=== PATIENT | female | born 1995 | race American Indian/Alaskan Native ===

== ENCOUNTER 2016-12-02 07:10 | Emergency (ER) | payer OTHER ==
[2016-12-02 07:27] VITALS: BP 129/80; PULSE 75; RESP 18; TEMP 99.6; O2SAT 99; BMI 20.3
--- NOTE | 2016-12-02 18:13 | ED PDOC ---
Arrival/HPI - General Chief Complaint: Upper Extremity Problem/Injury Time Seen by Provider: 12/02/16 07:51 - History of Present Illness Narrative History of Present Illness (Text): 21yo female in the ER with an anxiety attack. pt states she has a hx of anxiety and this felt similar to her previous anxiety episodes. Pt denies any suicidal or homicidal ideations. Pt states that her episode has simultaneously resolved and she now feels well. No complaints at this time. Past Medical History - Provider Review Nursing Documentation Reviewed: Yes - Past History Past History: No Previous - Tetanus Immunization Tetanus Immunization: Unknown - Psychiatric Hx Anxiety: Yes Hx Depression: Yes Hx Substance Use: No - Past Surgical History Past Surgical History: No Previous - Suicidal Assessment Feels Threatened In Home Enviroment: No Family/Social History Family/Social History: Unknown Family HX Smoking Status: Never Smoked Hx Alcohol Use: No Hx Substance Use: No Hx Substance Use Treatment: No Allergies/Home Meds Allergies/Adverse Reactions: Allergies No Known Allergies Allergy (Verified 12/02/16 07:27) Home Medications: Home Meds Medication Instructions Recorded Confirmed Ciprofloxacin [Cipro] 500 mg PO Q12 12/02/16 12/02/16 Escitalopram [Lexapro] 20 mg PO DAILY 12/02/16 12/02/16 Physical Exam - Physical Exam Narrative Physical Exam (Text): - Review of Systems Constitutional: Normal. absent: Fatigue, Weight Change, Fevers Eyes: Normal ENT: denies sore throat, denies tristhmus Respiratory: Normal. absent: SOB, Cough, Sputum Cardiovascular: absent: Chest Pain, Palpitations, Syncope Gastrointestinal: Normal. absent: Abdominal Pain, Diarrhea, Nausea, Vomiting Genitourinary: Normal. absent: Dysuria, Frequency, Hematuria, vaginal bleeding Musculoskeletal: Normal. absent: Arthralgias, Back Pain, Neck Pain Skin: no rashes, no erythema Neurological: absent: Focal Weakness Endocrine: Normal Hemo/Lymphatic: Normal Psychiatric: No suicidal or homicidal ideations. Anxiety resolved Physical exam Patient appears age appropriate in no distress, speaking full sentences without difficulty - Systems Exam Head: Present: Atraumatic, Normocephalic Pupils: Present: PERRL Extroacular Muscles: Present: EOMI Conjunctiva: Present: Normal Mouth: Present: Moist Mucous Membranes Neck: Present: Normal Range of Motion. No: MIDLINE TENDERNESS, Paraspinal Tenderness Respiratory/Chest: Present: Clear to Auscultation, Good Air Exchange. No: Respiratory Distress, Accessory Muscle Use, Tachypneic Cardiovascular: Present: Regular Rate and Rhythm, Normal S1, S2, Peripheal Pulses Present. No: Murmurs Abdomen: Present: Normal Bowel Sounds. No: Tenderness, Distention, Peritoneal Signs, Rebound, Guarding Back: Present: Normal Inspection. No: Midline Tenderness, Paraspinal Tenderness Upper Extremity: Present: Normal Inspection. No: Cyanosis, Edema Lower Extremity: Present: Normal Inspection. No: Edema Neurological: Present: GCS=15, Speech Normal, cranial nerves II through XII fully intact with no cerebellar abnormality, neurosensory fully intact. No focal neurological deficits. Skin: Present: Warm, Dry, Normal Color. No: Rashes Lymphatic: Present: OX3, NI, NC Psychiatric: Present: Alert, Oriented x 3, Normal Insight, Normal Concentration Vital Signs Reviewed: Yes Vital Signs Temp Pulse Resp BP Pulse Ox 12/02/16 07:23 99.6 F 75 18 129/80 99 Temperature: Afebrile Blood Pressure: Normal Pulse: Regular Respiratory Rate: Normal Appearance: Positive for: Well-Appearing Pain Distress: None Mental Status: Positive for: Alert and Oriented X 3 Medical Decision Making ED Course and Treatment: pt with anxiety episode which has spontaneously resolved currently in no distress and denies complaints states she feels comfortable being dc'd home with outpatient f/u Pt states she understands to return to the ER right away for new or worsening symptoms or for inability to f/u with PMD or specialist as instructed. Patient states that she fully agrees with and understands discharge instructions. States that she agrees with the plan and disposition. Verbalized and repeated discharge instructions and plan. I have given the patient opportunity to ask any additional questions. Disposition/Present on Arrival - Present on Arrival Any Indicators Present on Arrival: No History of DVT/PE: No History of Uncontrolled Diabetes: No Urinary Catheter: No History of Decub. Ulcer: No History Surgical Site Infection Following: None - Disposition Have Diagnosis and Disposition been Completed?: Yes Diagnosis: Anxiety Disposition: HOME/ ROUTINE Disposition Time: 08:30 Patient Plan: Discharge Condition: GOOD Discharge Instructions (ExitCare): Anxiety (ED) Additional Instructions: PLEASE RETURN TO THE EMERGENCY DEPARTMENT FOR NEW OR WORSENING SYMPTOMS. RETURN RIGHT AWAY IF YOU CANNOT FOLLOW UP WITH YOUR PRIMARY CARE DOCTOR, CLINIC, OR SPECIALIST IN 1-2 DAYS. Referrals: PCP,NO [Primary Care Provider] - Follow up with primary Tj Mclain MD [Staff Provider] - Follow up with primary Forms: [employer] ([employer])
== END 2016-12-02 08:13 | disposition home or self-care (01) ==
LOC: ED 07:10
DX: F41.9 Anxiety disorder, unspecified (principal)

== ENCOUNTER 2018-06-08 01:04 | Emergency (ER) | payer OTHER ==
[2018-06-08 01:04] VITALS: BMI 20.3
[2018-06-08 01:25] VITALS: RESP 18; O2SAT 98
--- NOTE | 2018-06-08 01:48 | ED PDOC ---
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 Patient states that she took a dose of Suzie with improvement of her symptoms. However she wanted to be evaluated in the emergency room. Otherwise patient reports improvement of her symptoms, (-) facial / throat swelling, (-) tongue / lip swelling, (-) dyspnea, (-) cough, (-) wheezing, (-) abdominal pain, (-) nausea (-) vomiting. 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 <Shonda Parra PA-C - Last Filed: 06/08/18 02:04> <Michael Flanagan - Last Filed: 06/08/18 02:10> - General Chief Complaint: Allergic Reaction Time Seen by Provider: 06/08/18 01:07 Past Medical History - Past History Past History: No Previous - Infectious Disease Hx of Infectious Diseases: None - Tetanus Immunization Tetanus Immunization: Unknown - Reproductive Currently : No - Psychiatric Hx Anxiety: Yes Hx Depression: Yes Hx Substance Use: No - Past Surgical History Past Surgical History: No Previous - Suicidal Assessment Feels Threatened In Home Enviroment: No <Shonda Parra PA-C - Last Filed: 06/08/18 02:04> Family/Social History Family/Social History: No Known Family HX Smoking Status: Never Smoked Hx Alcohol Use: No Hx Substance Use: No Hx Substance Use Treatment: No <Shonda Parra PA-C - Last Filed: 06/08/18 02:04> Allergies/Home Meds <Shonda Parra PA-C - Last Filed: 06/08/18 02:04> <Michael Flanagan - Last Filed: 06/08/18 02:10> Allergies/Adverse Reactions: Allergies mushroom Allergy (Verified 06/08/18 01:08) RASH tomato Adverse Reaction (Verified 06/08/18 01:08) VOMITING Home Medications: Home Meds Medication Instructions Recorded Confirmed Ciprofloxacin [Cipro] 500 mg PO Q12 12/02/16 12/02/16 Escitalopram [Lexapro] 20 mg PO DAILY 12/02/16 12/02/16 Review of Systems - Review of Systems Constitutional: absent: Fatigue ENT: absent: Sore Throat, Rhinorrhea Respiratory: absent: SOB, Cough Cardiovascular: absent: Chest Pain, Palpitations Gastrointestinal: absent: Abdominal Pain, Nausea, Vomiting Musculoskeletal: absent: Arthralgias, Back Pain, Neck Pain Skin: Pruritis. absent: Rash, Skin Lesions <Shonda Parra PA-C - Last Filed: 06/08/18 02:04> Physical Exam Vital Signs Temp Pulse Resp BP Pulse Ox 06/08/18 01:24 98.1 F 78 18 130/77 98 Temperature: Afebrile Blood Pressure: Normal Pulse: Regular Respiratory Rate: Normal Appearance: Positive for: Well-Appearing, Non-Toxic, Comfortable Pain Distress: None Mental Status: Positive for: Alert and Oriented X 3 - Systems Exam Head: Present: Atraumatic, Normocephalic. No: Swelling Pupils: Present: PERRL Extroacular Muscles: Present: EOMI Conjunctiva: Present: Normal Mouth: Present: Moist Mucous Membranes, Normal Lips, Normal Tounge Pharnyx: Present: Normal. No: ERYTHEMA, EXUDATE, TONSILS ENLARGED, Peritonsilar Swelling, Muffled/Hoarse Voice, Strider Neck: Present: Normal Range of Motion. No: Lymphadenopathy Respiratory/Chest: Present: Clear to Auscultation, Good Air Exchange. No: Respiratory Distress, Accessory Muscle Use Cardiovascular: Present: Regular Rate and Rhythm, Normal S1, S2. No: Murmurs Back: Present: Normal Inspection Upper Extremity: Present: Normal Inspection. No: Cyanosis, Edema Lower Extremity: Present: Normal Inspection. No: Edema Neurological: Present: GCS=15, CN II-XII Intact, Speech Normal, Motor Func Grossly Intact, Normal Sensory Function Skin: Present: Warm, Dry, Normal Color. No: Rashes Psychiatric: Present: Alert, Oriented x 3, Normal Insight, Normal Concentration <Shonda Parra PA-C - Last Filed: 06/08/18 02:04> Vital Signs Temp Pulse Resp BP Pulse Ox 06/08/18 01:24 98.1 F 78 18 130/77 98 <Michael Flanagan - Last Filed: 06/08/18 02:10> Medical Decision Making ED Course and Treatment: 06/08/18 01:49 Patient given prednisone po and pepcid po. Advised to follow up with primary care physician or referral provided in 1-2 days without fail. Advised to take otc suzie is symptoms continue. Return to the emergency room at any time for any new or worsening symptoms. Patient states she fully agrees with and understands discharge instructions. States that she agrees with the plan and disposition. Verbalized and repeated discharge instructions and plan. I have given the patient opportunity to ask any additional questions. <Shonda Parra PA-C - Last Filed: 06/08/18 02:04> - Medication Orders Current Medication Orders: Discontinued Medications Famotidine (Pepcid) 40 mg PO STAT STA Stop: 06/08/18 01:46 Last Admin: 06/08/18 02:03 Dose: 40 mg Prednisone (Prednisone Tab) 60 mg PO STAT STA Stop: 06/08/18 01:46 Last Admin: 06/08/18 02:01 Dose: 60 mg <Michael Flanagan - Last Filed: 06/08/18 02:10> - PA / [employer]UT[employer] CONSULTANT / Resident Statement KASSIE has reviewed & agrees with the documentation as recorded. <Shonda Parra PA-C - Last Filed: 06/08/18 02:04> - PA / [employer]UTIONS CONSULTANT / Resident Statement KASSIE has reviewed & agrees with the documentation as recorded. <Michael Flanagan - Last Filed: 06/08/18 02:10> Disposition/Present on Arrival - Present on Arrival Any Indicators Present on Arrival: No History of DVT/PE: No History of Uncontrolled Diabetes: No Urinary Catheter: No History of Decub. Ulcer: No History Surgical Site Infection Following: None - Disposition Have Diagnosis and Disposition been Completed?: Yes Disposition Time: 01:45 Patient Plan: Discharge <Shonda Parra PA-C - Last Filed: 06/08/18 02:04> <Michael Flanagan - Last Filed: 06/08/18 02:10> - Disposition Diagnosis: Food allergy Disposition: HOME/ ROUTINE Condition: STABLE Discharge Instructions (ExitCare): Food Allergy Additional Instructions: Thank you for letting us take care of you today. You were treated for food allergic reaction. The emergency medical care you received today was directed at your acute symptoms. It may take several days for your symptoms to resolve. Return to the Emergency Department if your symptoms worsen, do not improve, or if you have any other problems. Please contact your doctor in 2 days for re-evaluation and follow up / or call one of the physicians/clinics you have been referred to that are listed on the Patient Visit Information form that is included in your discharge packet. Bring any paperwork you were given at discharge with you along with any medications you are taking to your follow up visit. Our treatment cannot replace ongoing medical care by a primary care provider (PCP) outside of the emergency department. Thank you for allowing the [facility] team to be part of your care today. Referrals: Nilo Dixon MD [Staff Provider] - Follow up with primary Forms: [employer] (Khmer), WORK NOTE, SCHOOL NOTE
[2018-06-08 02:25] VITALS: BP 128/68; PULSE 76; TEMP 97.8
== END 2018-06-08 02:00 | disposition home or self-care (01) ==
LOC: ED 01:04
DX: L27.2 Dermatitis due to ingested food (principal)